=== PATIENT | female | born 1930 | race Caucasian/White ===

== ENCOUNTER → 2016-06-09 | Outpatient (CLI) | payer MEDICARE ==
[2014-09-28 18:23] VITALS: BP 206/100
--- NOTE | 2016-06-09 16:31 | RAD ---
EXAM: RENAL DOPPLER ULTRASOUND. HISTORY: Hypertension. COMPARISON: None. FINDINGS: Grayscale and Doppler analysis of the renal vasculature was performed bilaterally. Grayscale analysis of the kidneys and bladder were also performed. The peak systolic velocities within the proximal, mid and distal right renal artery are 149 cm/s, 129 cm/s and 114 cm/s, respectively. Resistive indices measure 0.83-0.88. The right renal vein is patent. The corresponding measurements on the left are 94 cm/s, 95 cm/s and 71 cm/s, respectively. Resistive indices measure 0.82-0.84. The left renal vein is patent. The patient is on velocity within the abdominal aorta at the level of the renal arteries is 93 cm/s. The right kidney measures 10.0 cm. Cortical echogenicity is mildly increased. Cortical thickness is preserved. There is no hydronephrosis. The left kidney measures 10.3 cm. Cortical thickness and echogenicity are preserved. There is no hydronephrosis. Images of the bladder reveal no gross abnormality. IMPRESSION: 1. No evidence of hemodynamically significant stenosis. 2. Mildly increased cortical echogenicity otherwise is consistent with intrinsic renal disease. Increased resistive indices bilaterally also suggests intrinsic renal disease.
== END | disposition home or self-care (01) ==
LOC: US 13:48
PROVIDERS: ATTEND Family Medicine
DX: I10 Essential (primary) hypertension (principal); N28.89 Other specified disorders of kidney and ureter
CPT/HCPCS: 93975

== ENCOUNTER → 2016-06-18 | Outpatient (CLI) | payer MEDICARE ==
[2014-09-28 18:23] VITALS: BP 206/100
--- NOTE | 2016-06-18 10:49 | CARD ---
APPROVED REPORT EXAM: Two-dimensional and M-mode echocardiogram with Doppler and color Doppler. Other Information Quality : Average Rhythm : NSR INDICATION Abnormal ECG 2D DIMENSIONS RVDd3.5 (2.9-3.5cm)Left Atrium(2D)3.6 (1.6-4.0cm) IVSd0.9 (0.7-1.1cm)Aortic Root(2D)2.9 (2.0-3.7cm) LVDd4.4 (3.9-5.9cm)LVOT Diameter2.0 (1.8-2.4cm) PWd0.9 (0.7-1.1cm)LVDs3.2 (2.5-4.0cm) FS (%) 28.4 %SV48.8 ml LVEF(%)55.0 (>50%) Aortic Valve AoV Peak Julian.229.3cm/sAoV VTI50.9cm AO Peak GR.21.0mmHgLVOT Peak Julian.115.5cm/s AO Mean GR.12mmHgAVA (VMAX)1.64cm2 FERNANDEZ (VTI)1.90cm2 Mitral Valve MV E Eyeatkjr40.7cm/sMV DECEL [id number] MV A Ohlucuji745.6cm/sMV NCV47zd E/A Ratio0.9MV A Hqjpehbd592cu MVA (PHT)3.35cm2 Tricuspid Valve TR P. Xrsdszxw382if/sRAP FZSWYKZK4rfWu TR Peak Gr.49kmEzVGYR71cqEr Pulmonary Vein S1 Daxeyxbn82.0cm/sD2 Qzjuqbsr83.9cm/s LEFT VENTRICLE The left ventricle is normal size. There is normal left ventricular wall thickness. Left ventricle sy stolic function is normal. The Ejection Fraction is 55-60%. There is normal LV segmental wall motion. The left ventricular diastolic function and filling is normal for age. RIGHT VENTRICLE The right ventricle is normal size. The right ventricular systolic function is normal. ATRIA The left atrium size is normal. The right atrium size is normal. The interatrial septum is intact wit h no evidence for an atrial septal defect or patent foramen ovale as noted on 2-D or Doppler imaging. AORTIC VALVE The aortic valve is mildly calcified. Doppler and Color Flow revealed no significant aortic regurgita tion. There is no significant aortic valvular stenosis. MITRAL VALVE Mitral annular calcification is borderline. There is no mitral valve stenosis. Doppler and Color Flow revealed mild mitral regurgitation. TRICUSPID VALVE The tricuspid valve is normal in structure. Doppler and Color Flow revealed mild tricuspid regurgitat ion. The PA pressure was estimated at 34 mmHg. There is no tricuspid valve stenosis. PULMONIC VALVE The pulmonic valve is not well visualized. Doppler and Color Flow revealed trace to mild pulmonic arnulfo vular regurgitation. There is no pulmonic valvular stenosis. GREAT VESSELS The aortic root is normal in size. Normal pulmonary venous flow (Doppler). The IVC is normal in size and collapses >50% with inspiration. PERICARDIAL EFFUSION There is no evidence of significant pericardial effusion. Critical Notification Critical Value: No <Conclusion> Left ventricle systolic function is normal. The Ejection Fraction is 55-60%. There is normal LV segmental wall motion. Mild mitral regurgitation. Mild tricuspid regurgitation. The PA pressure was estimated at 34 mmHg. There is no evidence of significant pericardial effusion.
== END | disposition home or self-care (01) ==
LOC: ECHO 08:48
PROVIDERS: ATTEND Internal Medicine Cardiovascular Disease
DX: R94.31 Abnormal electrocardiogram [ECG] [EKG] (principal); I34.0 Nonrheumatic mitral (valve) insufficiency; I07.1 Rheumatic tricuspid insufficiency
CPT/HCPCS: 93306

== ENCOUNTER 2016-10-01 17:19 | Emergency (ER) | payer MEDICARE ==
[~2016-10-01] VITALS: Ht 160 cm; Wt 63.5 kg
[~2016-10-01 17:19] MED LIST: ALEN70TA5 PO; ALPR0.254 PO; AMLO10TA2 PO; AZAT50TA PO; CALC500T30 PO; CHOL100013 PO; CIPR500S3 PO; CIPR500T94 PO; HYDR-2869 PO; HYDR12.53 PO; LATA2.5D3 EACHEYE; LISI40TA PO; METO25TA2 PO; MIRT45TA3 PO; PROB500T PO; SULF500T7 PO; TIOT18CA IH
[2016-10-01] MEDS ORDERED: cloNIDine HCL 0.1 MG TABLET PO ONE (17:45)
[2016-10-01 18:10] LABS: BASO % 1 % (0-3); EOS % 0 % (0-3); HEMATOCRIT 31.7 % (36.0-47.0); HEMOGLOBIN 11.1 g/dL (12.0-15.5); LYMPH # 1.1 x10^3/uL (1.0-4.8); LYMPH % 27 % (24-48); MEAN CORPUSCULAR HEMOGLOBIN 34 pg (25-35); MEAN CORPUSCULAR HGB CONC 35 g/dL (31-37); MEAN CORPUSCULAR VOLUME 98 fL (79-100); MONO % 15 % (0-9); NEUT % 57 % (31-73); PLATELET COUNT 164 x10^3/uL (140-400); RED BLOOD COUNT 3.25 x10^6/uL (3.50-5.40); RED CELL DISTRIBUTION WIDTH 14.4 % (11.5-14.5); WHITE BLOOD COUNT 3.8 x10^3/uL (4.0-11.0)
[2016-10-01 18:26] LABS: CALCIUM 9.5 mg/dL (8.5-10.1); GFR 52.7; POTASSIUM 3.3 mmol/L (3.5-5.1)
--- NOTE | 2016-10-01 18:28 | ED.ADGEN ---
Past Medical History Past Medical History: Anxiety, COPD, Hypertension, Other Additional Past Medical Histor: lactose intolerant, gout Past Surgical History: Appendectomy, Hysterectomy, Tonsillectomy Alcohol Use: Occasionally Drug Use: None Adult General Chief Complaint Chief Complaint: HYPERTENSION HPI HPI Patient is a 86 year old female with history attention who comes in with elevated blood pressure. Patient's blood pressures 240/110. Patient had blood pressure checked routinely by her home health aide. Patient denies any symptoms earlier today at this time. Specifically denies headache, change in vision, chest pain, shortness breath, palpitations, shortness breath, extremity weakness healing of extremities. Patient's compliant with her medications. Denies any recent changes. Denies fever chills, nausea vomiting sweats. No other acute symptoms or complaints. Patient's blood pressure in the emergency department is 237/108. Review of Systems Review of Systems ROS as per HPI. Current Medications Current Medications Current Medications Medications (Trade) Dose Ordered Sig/Tammy Start Time Stop Time Status Last Admin Dose Admin Alprazolam (Xanax) 0.25 mg 1X ONCE 10/01/16 20:00 10/01/16 20:01 DC 10/01/16 20:22 0.25 MG Clonidine HCl (Catapres) 0.2 mg 1X ONCE 10/01/16 17:45 10/01/16 17:46 DC 10/01/16 18:18 0.2 MG Allergies Allergies Allergies Coded Allergies Type Severity Reaction Last Updated Verified No Known Drug Allergies 09/28/14 No Physical Exam Physical Exam Constitutional: Well developed, well nourished, no acute distress, non-toxic appearance. HENT: Normocephalic, atraumatic, bilateral external ears normal, oropharynx moist, no oral exudates, nose normal. Eyes: PERRLA, EOMI, conjunctiva normal. Neck: Normal range of motion, no tenderness, supple. Cardiovascular:Heart rate regular rhythm, no murmur. Lungs & Thorax: Bilateral breath sounds clear to auscultation. No swelling. Abdomen: Bowel sounds normal, soft, no tenderness,. Skin: Warm, dry. Back: No tenderness. Extremities: No tenderness. Neurologic: Alert and oriented X 3, normal motor function, normal sensory function, no focal deficits noted. Psychologic: Affect, anxious. Current Patient Data Vital Signs Vital Signs Date Time Temp Pulse Resp B/P (MAP) Pulse Ox O2 Delivery O2 Flow Rate FiO2 10/01/16 20:40 55 198/91 (126) 98 Room Air 10/01/16 18:32 22 10/01/16 18:05 97.9 97.9 Lab Values Laboratory Tests Test 10/01/16 18:00 White Blood Count 3.8 x10^3/uL (4.0-11.0) L Red Blood Count 3.25 x10^6/uL (3.50-5.40) L Hemoglobin 11.1 g/dL (12.0-15.5) L Hematocrit 31.7 % (36.0-47.0) L Mean Corpuscular Volume 98 fL (79-100) Mean Corpuscular Hemoglobin 34 pg (25-35) Mean Corpuscular Hemoglobin Concent 35 g/dL (31-37) Red Cell Distribution Width 14.4 % (11.5-14.5) Platelet Count 164 x10^3/uL (140-400) Neutrophils (%) (Auto) 57 % (31-73) Lymphocytes (%) (Auto) 27 % (24-48) Monocytes (%) (Auto) 15 % (0-9) H Eosinophils (%) (Auto) 0 % (0-3) Basophils (%) (Auto) 1 % (0-3) Neutrophils # (Auto) 2.2 x10^3uL (1.8-7.7) Lymphocytes # (Auto) 1.1 x10^3/uL (1.0-4.8) Monocytes # (Auto) 0.6 x10^3/uL (0.0-1.1) Eosinophils # (Auto) 0.0 x10^3/uL (0.0-0.7) Basophils # (Auto) 0.0 x10^3/uL (0.0-0.2) Sodium Level 136 mmol/L (136-145) Potassium Level 3.3 mmol/L (3.5-5.1) L Chloride Level 101 mmol/L (98-107) Carbon Dioxide Level 29 mmol/L (21-32) Anion Gap 6 (6-14) Blood Urea Nitrogen 13 mg/dL (7-20) Creatinine 1.0 mg/dL (0.6-1.0) Estimated GFR (Cockcroft-Gault) 52.7 BUN/Creatinine Ratio 13 (6-20) Glucose Level 90 mg/dL (70-99) Calcium Level 9.5 mg/dL (8.5-10.1) Total Bilirubin 0.5 mg/dL (0.2-1.0) Aspartate Amino Transferase (AST) 22 U/L (15-37) Alanine Aminotransferase (ALT) 20 U/L (14-59) Alkaline Phosphatase 47 U/L (46-116) Troponin I Quantitative < 0.017 ng/mL (0.000-0.055) Total Protein 6.9 g/dL (6.4-8.2) Albumin 3.6 g/dL (3.4-5.0) Albumin/Globulin Ratio 1.1 (1.0-1.7) Laboratory Tests 10/01/16 18:00 Laboratory Tests 10/01/16 18:00 EKG EKG [EKG: S rhythm, rate 59, please right bundle branch block.] Radiology/Procedures Radiology/Procedures [] Course & Med Decision Making Course & Med Decision Making Pertinent Labs and Imaging studies reviewed. (See chart for details) [Patient's blood pressure likely anxiety mediated. Asymptomatic in the ED with exception of anxiety. Blood pressure treated with some improvement. Patient offered Xanax which she declined. Lab work and EKG unrevealing. Patient family members comfortable with discharge home with PCP follow-up. Patient instructed to continue current home blood pressure medication. I will not add additional blood pressure medications at this time due to concerns of overmedication and resultant hypotension. Dragon Disclaimer Dragon Disclaimer This electronic medical record was generated, in whole or in part, using a voice recognition dictation system. JERAD MORALEZ DO Oct 01, 2016 18:28
--- NOTE | 2016-10-01 18:29 | EKG ---
[facility] [address] [place] [address] Test Date: 2016-10-01 Test Time: 18:11:39 Pat Name: ADRIANNA SULLIVAN Department: Room: Gender: F Weigher Alloy: : 1930 Requested By: JERAD MORALEZ Order Number: [id number] Reading MD: Olivier Sanches Measurements Intervals [place] Rate: 59 P: -16 [place]: 236 QRS: 24 QRSD: 96 T: 34 QT: 434 QTc: 430 Interpretive Statements SINUS RHYTHM PROLONGED [place] INTERVAL INCOMPLETE RIGHT BUNDLE BRANCH BLOCK QRS(T) CONTOUR ABNORMALITY CANNOT RULE OUT ANTEROSEPTAL MYOCARDIAL DAMAGE RI6.01 Unconfirmed report Compared to ECG 07/27/2016 12:14:14 First degree AV block now present Incomplete right bundle-branch block now present Right bundle-branch block no longer present Electronically Signed On 10-05-2016 10:39:20 CDT by Olivier Sanches
[2016-10-01 18:32] LABS: ALBUMIN 3.6 g/dL (3.4-5.0); ALBUMIN/GLOBULIN RATIO 1.1 (1.0-1.7); TOTAL BILIRUBIN 0.5 mg/dL (0.2-1.0); TOTAL PROTEIN 6.9 g/dL (6.4-8.2)
[2016-10-01] MEDS ORDERED: ALPRAZolam 0.25 MG TABLET PO ONE (20:00)
[2016-10-01 20:40] VITALS: BP 198/91
== END 2016-10-01 20:42 | disposition home or self-care (01) ==
LOC: ER 17:19
DX: I10 Essential (primary) hypertension (principal); F41.9 Anxiety disorder, unspecified; J44.9 Chronic obstructive pulmonary disease, unspecified; M10.9 Gout, unspecified; Z90.49 Acquired absence of other specified parts of digestive tract; Z90.89 Acquired absence of other organs
CPT/HCPCS: 36415; 80053; 84484; 85027; 93005; 99285-25

== ENCOUNTER → 2016-10-22 | Outpatient (CLI) | payer MEDICARE ==
[2016-10-01 20:40] VITALS: BP 198/91
--- NOTE | 2016-10-22 10:47 | RAD ---
DATE: 10/22/2016 EXAM: DIGITAL SCREEN BILAT W/CAD HISTORY: Screening COMPARISON: None. This is a baseline exam This study was interpreted with the benefit of Computerized Aided Detection (CAD). FINDINGS: Breast Density: FATTY The Breast Parenchyma is primarily fatty replaced. Breast parenchyma level density A.. No mass or suspect calcifications are seen. Benign-appearing calcifications are noted in both breasts IMPRESSION: Benign findings BI-RADS CATEGORY: 2 BENIGN FINDING(S) RECOMMENDED FOLLOW-UP: 12M 12 MONTH FOLLOW-UP PQRS compliance statement: Patient information was entered into a reminder system with a target due date 10/22/2017 for the next mammogram. Mammography is a sensitive method for finding small breast cancers, but it does not detect them all and is not a substitute for careful clinical examination. A negative mammogram does not negate a clinically suspicious finding and should not result in delay in biopsying a clinically suspicious abnormality. "Our facility is accredited by the [employer] Mammography Program."
== END | disposition home or self-care (01) ==
LOC: MAMMO 09:21
PROVIDERS: ATTEND Family Medicine
DX: Z12.31 Encounter for screening mammogram for malignant neoplasm of breast (principal)
CPT/HCPCS: G0202; 77067